=== PATIENT | male | born 1960 | race Caucasian/White ===

== ENCOUNTER 2016-08-10 19:55 | Emergency (ER) | payer OTHER ==
[~2016-08-10 19:55] MED LIST: ADVAIR 500-501 EACH IH; ALBUTEROL S3 ML/VIAL NEB; BARACLUDE0.5 MG PO; CELEXA20 MG PO; DILANTIN KAPSE100 MG PO; DILANTIN100 MG PO; IPRAT-ALBUT 0.5-3 ML NEB; KLONOPIN0.5 MG PO; LACTINEX CHEWA1 EACH PO; LEVAQUIN750 MG PO; LORTAB 5-325 M1 EACH PO; MILK THISTLE140 M1 PO; MUCINEX600 MG PO; NEURONTIN300 MG PO; NEURONTIN600 MG PO; NICOTINE TRANSD21 MG TOP; PREDNISONE10 MG PO; PROTONIX40 MG PO; SYMBICORT 16010.2 GM IH; ZINC SULFATE220 M1 PO; ZINC-220220 MG PO; ZITHROMAX500 MG PO
== END 2016-08-10 22:04 | disposition critical access hospital (66) ==
LOC: ER 19:55
DX: J44.1 Chronic obstructive pulmonary disease with (acute) exacerbation (principal); R09.02 Hypoxemia; R53.1 Weakness; F32.9 Major depressive disorder, single episode, unspecified; K21.9 Gastro-esophageal reflux disease without esophagitis; F41.9 Anxiety disorder, unspecified; F17.210 Nicotine dependence, cigarettes, uncomplicated; Z79.899 Other long term (current) drug therapy; Z88.6 Allergy status to analgesic agent; Z99.81 Dependence on supplemental oxygen
CPT/HCPCS: 36415; 96374; 96375

== ENCOUNTER 2016-08-10 19:55 | Inpatient (IN) | payer OTHER ==
[~2016-08-10] VITALS: Ht 185.4 cm; Wt 85.7 kg
== END 2016-08-13 11:55 | disposition home or self-care (01) | DRG 191 ==
LOC: ER 19:55 → MED 23:05 → ER 08-11 00:01 → MED 08-11 00:01
PROVIDERS: ADMIT Internal Medicine
DX: J44.0 Chronic obstructive pulmonary disease with (acute) lower respiratory infection (principal); B18.1 Chronic viral hepatitis B without delta-agent; J96.11 Chronic respiratory failure with hypoxia; J20.9 Acute bronchitis, unspecified; J44.1 Chronic obstructive pulmonary disease with (acute) exacerbation; Z99.81 Dependence on supplemental oxygen; F41.9 Anxiety disorder, unspecified; K74.60 Unspecified cirrhosis of liver; F32.9 Major depressive disorder, single episode, unspecified; K21.9 Gastro-esophageal reflux disease without esophagitis; G89.4 Chronic pain syndrome; G40.909 Epilepsy, unspecified, not intractable, without status epilepticus; Z79.899 Other long term (current) drug therapy; Z88.6 Allergy status to analgesic agent; F17.210 Nicotine dependence, cigarettes, uncomplicated; Z80.1 Family history of malignant neoplasm of trachea, bronchus and lung; Z83.3 Family history of diabetes mellitus
CPT/HCPCS: 36415; 94640; 96374; 96375; J1650; J1885